=== PATIENT | female | born 1980 ===

== ENCOUNTER 2020-05-22 09:51 | Day surgery (SDC) | payer OTHER ==
[~2020-05-22 09:51] MED LIST: DIPRIVAN 200 MG/20 ML IV ONE; Ketamine HCl 50 MG/ML ONE; SUBLIMAZE 100 MCG/2 ML ONE; Versed 2 MG/2 ML Injection ONE
[2020-05-22] MEDS ORDERED: BUPIVACAINE 0.5% VIAL IJ ONE (09:52)
[2020-05-22] MEDS ORDERED: Lactated Ringers 1,000 ML IV ONE (09:52)
--- NOTE | 2020-05-22 13:16 | XRAY ---
Indication: Right knee genicular nerve block. Intraoperative fluoroscopy was provided for 17 seconds. 3 digital spot images of the right knee submitted for interpretation demonstrates anterior needle tips projecting medial/lateral supracondylar and medial tibial plateau. Correlate with intraoperative findings/report.
--- NOTE | 2020-05-22 13:16 | XRAY ---
Indication: Left knee genicular nerve block. Intraoperative fluoroscopy was provided for 9 seconds. 3 digital spot images of the left knee submitted for interpretation demonstrates anterior needle tips projecting medial/lateral supracondylar and medial tibial plateau. Correlate with intraoperative findings/report.
--- NOTE | 2020-05-22 13:16 | XRAY ---
17 seconds fluoroscopy time in surgery for right genicular nerve block.
--- NOTE | 2020-05-22 13:26 | XRAY ---
9 seconds fluoroscopy time in surgery for left genicular nerve block.
== END 2020-05-22 11:50 | disposition home or self-care (01) ==
LOC: SDC-PAIN 09:51
PROVIDERS: ATTEND Psychiatry & Neurology Pain Medicine
DX: M17.0 Bilateral primary osteoarthritis of knee (principal); I10 Essential (primary) hypertension; F41.8 Other specified anxiety disorders; Z79.899 Other long term (current) drug therapy
CPT/HCPCS: 64454; 73560; 77002; 84703; J2250; J2704; J3010